=== PATIENT | female | born 1970 | race Caucasian/White ===

== ENCOUNTER 2022-02-13 10:57 | Outpatient (RCR) | payer OTHER, SELFPAY | END 2022-02-23 23:59 | disposition home or self-care (01) | LOC: CCIC 10:57 | PROVIDERS: PCP Family Medicine; Visit Provider Nurse Practitioner Family | DX: C43.9 Malignant melanoma of skin, unspecified (principal) | CPT/HCPCS: 99213; 99214 ==

== ENCOUNTER 2022-03-18 07:31 | Outpatient (RCR) | payer OTHER, SELFPAY | END 2022-03-20 13:40 | disposition home or self-care (01) | PROVIDERS: PCP Family Medicine; Visit Provider Surgery | DX: I89.0 Lymphedema, not elsewhere classified (principal); Z51.89 Encounter for other specified aftercare | CPT/HCPCS: 97530 ==

== ENCOUNTER 2022-05-08 13:11 | Outpatient (CLI) | payer OTHER, SELFPAY ==
--- NOTE | 2022-05-08 13:15 | CRLHL7_ITS ---
For Patients: As a result of the Century Cures Act, medical imaging exams and procedure reports are released immediately into your electronic medical record. You may view this report before your referring provider. If you have questions, please contact your health care provider. INDICATION: Melanoma TECHNIQUE: Following IV injection of FDG with uptake of 64 minutes, noncontrast CT scan followed by a PET scan were acquired along the length of body from the head vertex to the feet. Noncontrast CT was used for anatomic localization and photon attenuation correction of the PET-CT scan. - Blood glucose level: 82. - FDG dose (mCi): 12.65. COMPARISON: 04/25/2021. FINDINGS: Head/Neck: No abnormal radiotracer uptake - Chest: No abnormal radiotracer uptake - Background liver parenchyma with SUV mean of 2.12. No abnormal radiotracer uptake - Musculoskeletal: No abnormal radiotracer uptake - CT findings: Postsurgical changes of the right posterior thorax. Status post right axillary lymph node dissection. Sub centimeter left thyroid nodule which is not hypermetabolic. IUD in place. Minimal atherosclerotic disease of the abdominal aorta. IMPRESSION : No evidence of local recurrence or metastatic disease. Dictated by Duane Cerda MD @ 05/14/2022 5:58:52 PM (Electronically Signed)
== END 2022-05-08 13:12 | disposition home or self-care (01) ==
LOC: RAD 13:13
PROVIDERS: PCP Family Medicine; Visit Provider Nurse Practitioner Family
DX: C43.9 Malignant melanoma of skin, unspecified (principal)
CPT/HCPCS: 78816; A9552

== ENCOUNTER 2022-05-26 07:05 | Outpatient (CLI) | payer OTHER, SELFPAY ==
--- NOTE | 2022-05-26 07:15 | CRLHL7_ITS ---
For Patients: As a result of the Century Cures Act, medical imaging exams and procedure reports are released immediately into your electronic medical record. You may view this report before your referring provider. If you have questions, please contact your health care provider. Indication: MALIGNANT NEOPLASM OF SKIN, RE-EVALUATE LYMPH NODES Technique: Grayscale and color Doppler ultrasound of the right axilla performed. Comparison: 02/11/22 Findings: Stable lymph node within the right axilla with a prominent central fatty hilum and thin hypoechoic cortex measuring 6 x 3 x 8 millimeters. Stable lymph node also present in the right axilla with normal fatty hilum measuring 6 x 4 x 6 millimeters. Normal vascularity. No suspicious findings. Impression: Stable normal-appearing right axillary lymph nodes. Dictated by Duke Snowden MD @ 05/26/2022 8:54:54 AM (Electronically Signed)
== END 2022-05-26 07:06 | disposition home or self-care (01) ==
LOC: US 07:06
PROVIDERS: PCP Family Medicine; Visit Provider Clinical Nurse Specialist
DX: C43.9 Malignant melanoma of skin, unspecified (principal)
CPT/HCPCS: 76882

== ENCOUNTER 2022-07-06 14:53 | Emergency (ER) | payer OTHER, SELFPAY ==
[2022-07-06 14:59] VITALS: BP 134/76; PULSE 72; RESP 18; TEMP 36.8; O2SAT 99; BMI 21.9
--- NOTE | 2022-07-06 15:17 | CRLHL7_ITS ---
For Patients: As a result of the Century Cures Act, medical imaging exams and procedure reports are released immediately into your electronic medical record. You may view this report before your referring provider. If you have questions, please contact your health care provider. INDICATION: Injury. TECHNIQUE: Noncontrast CT images acquired through the brain. COMPARISON: None. FINDINGS: The ventricles and sulci are within normal limits for patient age. No mass effect or midline shift. The frazier-white differentiation is maintained. No acute intracranial hemorrhage or pathologic extra-axial fluid collection. Minimal atherosclerotic calcifications in the carotid siphons. The globes are symmetric. The calvarium is intact. Very small hyperattenuating left maxillary sinus air-fluid level. The mastoid air cells are clear. IMPRESSION: 1. No acute intracranial hemorrhage or mass effect. 2. Very small air-fluid level in the left maxillary sinus demonstrating hyperattenuation potentially secondary to inspissated secretions or blood products. Please note that all CT scans at this facility use dose modulation, iterative reconstruction, and/or weight-based dosing when appropriate to reduce radiation dose to as low as reasonably achievable. Dictated by Lc Trevino MD @ 07/06/2022 3:45:22 PM (Electronically Signed)
--- NOTE | 2022-07-06 15:17 | CRLHL7_ITS ---
For Patients: As a result of the Cures Act, medical imaging exams and procedure reports are released immediately into your electronic medical record. You may view this report before your referring provider. If you have questions, please contact your health care provider. INDICATION: INJURY TECHNIQUE: CT cervical spine without contrast. COMPARISON: None. FINDINGS: Vertebrae: Reversal of expected cervical lordosis. There are no fractures or suspicious bony lesions. Discs and facet joints: There are degenerative disc changes most severe at C5-6 and C6-7. There are multilevel degenerative changes in the facets. Extraspinal findings: Paraspinous soft tissues are unremarkable. Subcentimeter hypodense left thyroid nodule. IMPRESSION: No evidence of acute cervical spine fracture. Reversal of expected cervical lordosis which is nonspecific but may indicate muscle spasm. Mild-moderate multilevel degenerative spondylosis. Subcentimeter hypodense left thyroid nodule. Recommend nonemergent thyroid ultrasound to further evaluate if not views performed. Please note that all CT scans at this facility use dose modulation, iterative reconstruction, and/or weight-based dosing when appropriate to reduce radiation dose to as low as reasonably achievable. Dictated by Gómez Turner MD @ 07/06/2022 3:56:24 PM (Electronically Signed)
--- NOTE | 2022-07-06 15:17 | ED.HEATRA ---
HPI - Head Injury General Chief complaint: Head Injury/Pain Stated complaint: Sledding Accident Hit Head Time Seen by Provider: 07/06/22 15:05 History of Present Illness HPI Narrative: This 51-year-old female comes in with an injury that occurred just prior to arrival. She was sledding down a hill and hit a bump and flew into the air. She does not remember what happened and still feels foggy. She was able to ambulate in here under her own strength in without difficulty. She does have an abrasion on her nose and upper lip. She reports mild or moderate headache and some neck pain. She does not report any pain in her chest, abdomen, back, pelvis, or extremities. Prior to this she has been in good health. Related Data Home Medications Medication Instructions Recorded Confirmed ibuprofen 400 mg tablet 400 mg PO Q8H PRN 02/11/22 05/29/22 levonorgestrel 20 mcg/24 hours (8 1 device intrauterine ONCE 02/11/22 05/29/22 yrs) 52 mg intrauterine device (Mirena) melatonin 5 mg capsule 5 mg PO .HS PRN 02/11/22 05/29/22 Previous Rx's Medication Instructions Recorded cyclobenzaprine 10 mg tablet 10 mg PO TID #15 tabs 07/06/22 ketorolac 10 mg tablet 10 mg PO Q8H 5 days #15 tabs 07/06/22 Allergies Allergy/AdvReac Type Severity Reaction Status Date / Time No Known Drug Allergies Allergy Verified 05/29/22 14:55 Review of Systems Status of ROS: Reports: 10 or more systems reviewed and unremarkable except as noted in History and below Narrative: Constitutional: No fevers, no weight gain or loss. Eyes: No discharge. No vision changes. HENT: No congestion, no sore throat, no ear pain. Cardiovascular: No chest pain, no palpitations. Respiratory: No shortness of breath, no wheezes, no cough. Gastrointestinal: No abdominal pain, no vomiting, no diarrhea. Genitourinary: No dysuria, no hematuria. Musculoskeletal: Normal range of motion. Skin: No rashes, no pruritis. Neurological: No dizziness, weakness, sensory change, speech change. She does not remember what happened and still feels foggy. Endo/Heme/Allergies: No bruising or bleeding. No polydipsia. Pysch: no suicidality, no anxiety, no insomnia. All other systems reviewed and are negative. [facility] Medical History (Updated 07/06/22 @ 16:23 by Low Lopez MD) Insomnia Inverted nipple Malignant melanoma Surgical History (Updated 02/12/22 @ 23:38 by Carmen Whalen APRN) H/O wisdom tooth extraction History of colposcopy Social History Smoking Status: Never smoker Do you use any of these nicotine containing products: None How often do you have a drink containing alcohol: never AUDIT-C Alcohol total score: 0 Non-prescribed substance use: denies use Exam Narrative: Exam Narrative: Constitutional: Well-developed, well-nourished, no acute distress. HEENT: Normocephalic, atraumatic. Neck: Normal range of motion. Nontender when palpating along the midline. Supple. Heart: Regular. No murmurs. Normal rate. Intact distal pulses. Lungs: Clear to auscultation. No chest discomfort. No wheezes, rhonchi, or rales. Abdomen: Normal bowel sounds. Nontender. No rebound tenderness. Genitalia: Deferred. Back: No midline tenderness. Normal range of motion. Extremities: Normal range of motion. No injury. Skin: Intact. No rash. Warm. No erythema or pallor. Neurologic: No altered sensation. No weakness. Alert and oriented. Psychiatric: No suicidality. No anxiety or depression. No insomnia. Nursing notes and vitals signs are reviewed. Const: Vital Signs, click to edit/add: Vital Signs - 24 hr 07/06/22 14:59 Temperature 98.2 F Pulse Rate [Right Pulse Oximeter] 72 Respiratory Rate 18 Blood Pressure [13 4/76] 134/76 Pulse Oximetry 99 Oxygen Delivery Me thod Room Air Course Vital Signs Vital signs: Initial Vital Signs Temperature 98.2 F 07/06/22 14:59 Temperature Source Temporal Artery Scan 07/06/22 14:59 Pulse Rate 72 07/06/22 14:59 Respiratory Rate 18 07/06/22 14:59 Blood Pressure 134/76 07/06/22 14:59 Blood Pressure Mean 95 07/06/22 14:59 Blood Pressure Position Sitting 07/06/22 14:59 Pulse Oximetry 99 07/06/22 14:59 Oxygen Delivery Method 07/06/22 14:59 Vital Signs Temperature 98.2 F 07/06/22 14:59 Pulse Rate 72 07/06/22 14:59 Respiratory Rate 18 07/06/22 14:59 Blood Pressure 134/76 07/06/22 14:59 Pulse Oximetry 99 07/06/22 14:59 Oxygen Delivery Method 07/06/22 14:59 Temperature 98.2 F 07/06/22 14:59 Pulse Rate 72 07/06/22 14:59 Respiratory Rate 18 07/06/22 14:59 Blood Pressure 134/76 07/06/22 14:59 Pulse Oximetry 99 07/06/22 14:59 Oxygen Delivery Method 07/06/22 14:59 MDM - Head Injury MDM Narrative Medical decision making narrative: This patient comes in with head injury as described above. She also has some neck discomfort. She does not show any other sign of injury. She does not have any neurologic deficit or altered level of consciousness. She does feel a bit foggy in her thinking but her [place] coma Score is 15. A CT scan of the head and C-spine is ordered and completed. This returns with no acute findings. There is a small hypodense nodule in the left thyroid that was communicated to the patient. She is encouraged to follow-up at some point for ultrasound of this area. This patient has symptoms typical of a concussion. I described appropriate plans going forward in recovery of a concussion. She received prescriptions for Toradol and Flexeril. Imaging Data CT scan - head: Radiologist's impression: 1. No acute intracranial hemorrhage or mass effect. 2. Very small air-fluid level in the left maxillary sinus demonstrating hyperattenuation potentially secondary to inspissated secretions or blood products. CT C spine: Radiologist's impression: No evidence of acute cervical spine fracture. Reversal of expected cervical lordosis which is nonspecific but may indicate muscle spasm. Mild-moderate multilevel degenerative spondylosis. Subcentimeter hypodense left thyroid nodule. Recommend nonemergent thyroid ultrasound to further evaluate if not views performed. Discharge Plan Discharge Clinical Impression: Concussion with loss of consciousness Patient Disposition: Home, Self-Care Condition: Stable Additional Instructions: Increase activity as tolerated. Take medication as needed and directed. Follow up with MD or return if worsening. Prescriptions: New cyclobenzaprine 10 mg tablet 10 mg PO TID Qty: 15 0RF ketorolac 10 mg tablet 10 mg PO Q8H 5 Days Qty: 15 0RF No Action ibuprofen 400 mg tablet 400 mg PO Q8H PRN Mirena 20 mcg/24 hours (7 yrs) 52 mg intrauterine device 1 device intrauterine ONCE Rx Instructions: as a single dose melatonin 5 mg capsule 5 mg PO .HS PRN Follow Up/Referrals: Teodora Orourke MD [Primary Care Provider] - Stand Alone [facility]: [facility]
== END 2022-07-06 16:29 | disposition home or self-care (01) ==
PROVIDERS: Emergency Provider Emergency Medicine Emergency Medical Services; PCP Family Medicine
DX: S06.0X1A Concussion with loss of consciousness of 30 minutes or less, initial encounter (principal); W17.81XA Fall down embankment (hill), initial encounter; Y93.23 Activity, snow (alpine) (downhill) skiing, snowboarding, sledding, tobogganing and snow tubing
CPT/HCPCS: 70450; 72125; 99284

== ENCOUNTER 2022-07-10 10:14 | Outpatient (CLI) | payer OTHER, SELFPAY ==
--- NOTE | 2022-07-10 10:15 | CRLHL7_ITS ---
For Patients: As a result of the Century Cures Act, medical imaging exams and procedure reports are released immediately into your electronic medical record. You may view this report before your referring provider. If you have questions, please contact your health care provider. BILATERAL SCREENING MAMMOGRAM WITH COMPUTER-AIDED DETECTION AND TOMOSYNTHESIS TECHNIQUE: CC and MLO views were obtained. These mammographic images have been obtained using full-field digital technique. These mammographic images were interpreted with the benefit of computer-aided detection. Breast Tomosynthesis was used in this interpretation. COMPARISON FILM: 05/02/21, 03/20/20, 03/17/18. FINDINGS: The breasts are heterogeneously dense, which may obscure small masses IMPRESSION: There is no radiographic evidence for malignancy. ASSESSMENT: BI-RADS Category 1: Negative RECOMMENDATION: Routine screening mammogram in 1 year. A lay language report of this examination will be provided to the patient. Duke Snowden M.D. Diagnostic Radiologist [email or web address] Transcribed: 2:03 pm DW/Dictated by: Duke Snowden MD @ 07/10/2022 11:41:00 AM (Electronically Signed)
== END 2022-07-10 10:15 | disposition home or self-care (01) ==
LOC: MAMMO 10:14
PROVIDERS: PCP Family Medicine; Visit Provider Family Medicine
DX: Z12.31 Encounter for screening mammogram for malignant neoplasm of breast (principal); R92.2 Inconclusive mammogram
CPT/HCPCS: 77063; 77067

== ENCOUNTER 2022-08-28 08:30 | Outpatient (RCR) | payer OTHER, SELFPAY | END 2022-11-25 23:59 | disposition home or self-care (01) | LOC: CCIC 08:30 | PROVIDERS: PCP Family Medicine; Visit Provider Physician Assistant | DX: C43.9 Malignant melanoma of skin, unspecified (principal); E04.1 Nontoxic single thyroid nodule; C77.9 Secondary and unspecified malignant neoplasm of lymph node, unspecified | CPT/HCPCS: 99212; 99214 ==

== ENCOUNTER 2022-08-28 09:05 | Outpatient (CLI) | payer OTHER, SELFPAY ==
--- NOTE | 2022-08-28 09:15 | CRLHL7_ITS ---
For Patients: As a result of the Century Cures Act, medical imaging exams and procedure reports are released immediately into your electronic medical record. You may view this report before your referring provider. If you have questions, please contact your health care provider. INDICATION: Malignant melanoma, monitor for lymph node metastasis. TECHNIQUE: Ultrasound right axilla with grayscale imaging and color Doppler analysis. COMPARISON: Ultrasound right axilla 05/26/2022. FINDINGS: Sonographic evaluation of the right axilla demonstrates three small lymph nodes measuring 0.6 x 0.4 x 0.7 cm, 0.7 x 0.4 x 0.9 cm, and 0.7 x 0.4 x 0.7 cm. The two more inferior lymph nodes demonstrate prominent fatty ashley with thin hypoechoic cortices. The most superior lymph node is stable in morphology compared to prior exam with smaller fatty hilum. The superior and inferior lymph nodes were visualized previously and are stable in size. IMPRESSION: Three small normal morphology right axillary lymph nodes. Dictated by Rehana Mathis MD @ 08/28/2022 12:19:27 PM (Electronically Signed)
--- NOTE | 2022-08-28 09:15 | CRLHL7_ITS ---
For Patients: As a result of the Century Cures Act, medical imaging exams and procedure reports are released immediately into your electronic medical record. You may view this report before your referring provider. If you have questions, please contact your health care provider. INDICATION: Nodule seen on CT. COMPARISON: CT of the cervical spine 07/06/2022. TECHNIQUE: Andre scale and color Doppler images were acquired of the thyroid gland. FINDINGS: The thyroid gland demonstrates uniform echogenicity with smooth outer contour. The color Doppler images demonstrate normal vascularity. Right lobe: The right lobe measures 4.6 x 1.3 x 1.3 cm in size. No nodules. Left lobe: The left lobe measures 4.4 x 1.3 x 1.5 cm in size. There is a 0.8 x 0.5 x 0.9 cm mixed cystic and solid nodule in the mid left thyroid lobe. The solid component is hypoechoic. The nodule is wider than tall. TIRADS 3. Isthmus: The isthmus measures 0.3 cm in thickness. No nodules. IMPRESSION: 1. Subcentimeter TIRADS 3 nodule in the mid left thyroid lobe. This does not meet size criteria for FNA. ACR TI-RADS: [email or web address] TR1: Benign No FNA TR2: Not Suspicious No FNA TR3: Mildly Suspicious FNA if greater than or equal to 2.5 cm Follow if greater than or equal to 1.5 cm TR4: Moderately Suspicious FNA if greater than or equal to 1.5 cm Follow if greater than or equal to 1 cm TR5: Highly Suspicious FNA if greater than or equal to 1 cm Follow if greater than or equal to 0.5 cm Dictated by Rehana Mathis MD @ 08/28/2022 12:08:12 PM (Electronically Signed)
== END 2022-08-28 09:06 | disposition home or self-care (01) ==
LOC: US 09:07
PROVIDERS: PCP Family Medicine; Visit Provider Clinical Nurse Specialist
DX: C43.9 Malignant melanoma of skin, unspecified (principal); E04.1 Nontoxic single thyroid nodule; R59.0 Localized enlarged lymph nodes
CPT/HCPCS: 76536; 76882

== ENCOUNTER 2022-09-02 07:36 | Outpatient (CLI) | payer OTHER, SELFPAY ==
[2022-09-02 09:14] LABS: Albumin* 4.5 g/dL (3.3-5.0); Chloride* 107 mmol/L (96-114)
[2022-09-02 09:15] LABS: Potassium* 4.3 mmol/L (3.6-5.1); Sodium* 141 mmol/L (135-149)
[2022-09-02 09:17] LABS: Aspartate Amino Transferase* 21 U/L (12-35); Bilirubin Total* 0.6 mg/dL (0.1-1.5); Blood Urea Nitrogen* 18 mg/dL (7-30); Carbon Dioxide* 27 mmol/L (20-32); Cholesterol* 217 mg/dL (90-199); Creatinine* 0.8 mg/dL (0.5-1.5); Estimated Glomerular Filt Rate 89 ml/min; Glucose* 92 mg/dL (60-115); Total Protein* 7.4 g/dL (6.0-8.3)
[2022-09-02 09:18] LABS: Alanine Aminotransferase* 16 U/L (4-35); Alkaline Phosphatase* 51 U/L (40-150); Calcium* 9.5 mg/dL (8.4-10.6); HDL Cholesterol* 75 mg/dL (>=50); LDL Cholesterol Calculated 126 mg/dL (<100); Triglycerides* 79 mg/dL (40-149)
== END 2022-09-02 07:37 | disposition home or self-care (01) ==
PROVIDERS: PCP Family Medicine; Visit Provider Family Medicine
DX: Z13.6 Encounter for screening for cardiovascular disorders (principal)
CPT/HCPCS: 80053; 80061

== ENCOUNTER 2023-03-06 07:55 | Outpatient (CLI) | payer OTHER, SELFPAY ==
--- NOTE | 2023-03-06 08:15 | CRLHL7_ITS ---
For Patients: As a result of the Century Cures Act, medical imaging exams and procedure reports are released immediately into your electronic medical record. You may view this report before your referring provider. If you have questions, please contact your health care provider. Indication: Melanoma follow-up Technique: Grayscale and color Doppler ultrasound of right axilla performed. Comparison: 12/03/2022, 08/28/2022, 05/26/2022 Findings: Normal morphologic lymph nodes are present. Normal central fatty ashley and normal vascularity. One lymph node measures 2.3 x 0.5 x 0.6 cm with a cortex measuring 1.5 millimeters. A 2nd lymph node measures 8 x 5 x 6 millimeters with a cortex measuring 2 millimeters. Impression: Normal morphology of right axillary lymph nodes without cortical thickening. Dictated by Duke Snowden MD @ 03/06/2023 9:02:21 AM (Electronically Signed)
== END 2023-03-06 07:56 | disposition home or self-care (01) ==
LOC: US 07:56
PROVIDERS: PCP Family Medicine; Visit Provider Internal Medicine Hematology & Oncology
DX: C43.9 Malignant melanoma of skin, unspecified (principal)
CPT/HCPCS: 76882

== ENCOUNTER 2023-03-19 15:00 | Outpatient (RCR) | payer OTHER, SELFPAY | END 2023-06-02 23:59 | disposition home or self-care (01) | LOC: CCIC 15:00 | PROVIDERS: PCP Family Medicine; Visit Provider Physician Assistant | DX: C43.59 Malignant melanoma of other part of trunk (principal); C77.9 Secondary and unspecified malignant neoplasm of lymph node, unspecified; F07.81 Postconcussional syndrome | CPT/HCPCS: 99212; 99214; 99215 ==

== ENCOUNTER 2023-09-01 09:05 | Outpatient (CLI) | payer OTHER, SELFPAY ==
--- NOTE | 2023-09-01 09:15 | CRLHL7_ITS ---
For Patients: As a result of the Century Cures Act, medical imaging exams and procedure reports are released immediately into your electronic medical record. You may view this report before your referring provider. If you have questions, please contact your health care provider. INDICATION: History of melanoma, reassess right axillary nodes. TECHNIQUE: Right axillary ultrasound with grayscale and color Doppler images. COMPARISON: 03/06/2023, 12/03/2022, 08/28/2022 axillary ultrasounds. FINDINGS: Two normal-appearing lymph nodes noted. These have preserved fatty ashley and normal cortex. Lymph node 1 measures 8 x 3 mm and has cortical thickness of 1 mm. Lymph node 2 measures 5 x 3 mm and has cortical thickness of 1 mm. IMPRESSION: Two small normal-appearing lymph nodes in the right axilla. Dictated by Otis Aguilar MD @ 09/02/2023 11:18:52 AM (Electronically Signed)
== END 2023-09-01 09:06 | disposition home or self-care (01) ==
PROVIDERS: PCP Family Medicine; Visit Provider Physician Assistant
DX: C43.9 Malignant melanoma of skin, unspecified (principal); C77.9 Secondary and unspecified malignant neoplasm of lymph node, unspecified
CPT/HCPCS: 76882

== ENCOUNTER 2023-09-03 14:03 | Outpatient (RCR) | payer OTHER, SELFPAY | END 2024-03-01 23:59 | disposition home or self-care (01) | LOC: CCIC 14:03 | PROVIDERS: PCP Family Medicine; Visit Provider Physician Assistant | DX: C43.59 Malignant melanoma of other part of trunk (principal); C77.9 Secondary and unspecified malignant neoplasm of lymph node, unspecified; G47.00 Insomnia, unspecified; R51.9 Headache, unspecified; F07.81 Postconcussional syndrome | CPT/HCPCS: 99214; G0463 ==

== ENCOUNTER 2024-02-25 08:05 | Outpatient (CLI) | payer OTHER, SELFPAY ==
--- NOTE | 2024-02-25 08:15 | CRLHL7_ITS ---
For Patients: As a result of the Century Cures Act, medical imaging exams and procedure reports are released immediately into your electronic medical record. You may view this report before your referring provider. If you have questions, please contact your health care provider. Indication: Melanoma 6 month f/u rt axillary lymph nodes Technique: Grayscale and color Doppler ultrasound of the right axillary soft tissues performed. Comparison: 09/01/2023 Findings: Normal right axillary lymph nodes are present. Lymph nodes measure 1.4 x 0.5 x 0.8 cm and 0.8 x 0.4 x 0.6 cm. Normal fatty hilum within each lymph node and normal internal vascularity. The cortex is not thickened. Impression: Normal right axillary lymph nodes. No suspicious findings. Dictated by Duke Snowden MD @ 02/26/2024 6:31:53 AM (Electronically Signed)
== END 2024-02-25 08:06 | disposition home or self-care (01) ==
LOC: US 08:05
PROVIDERS: PCP Family Medicine; Visit Provider Physician Assistant
DX: C77.9 Secondary and unspecified malignant neoplasm of lymph node, unspecified (principal); C43.9 Malignant melanoma of skin, unspecified
CPT/HCPCS: 76882

== ENCOUNTER 2024-03-07 11:09 | Outpatient (RCR) | payer OTHER, SELFPAY | END 2024-09-03 23:59 | disposition home or self-care (01) | LOC: CCIC 11:09 | PROVIDERS: PCP Family Medicine; Visit Provider Physician Assistant | DX: C43.59 Malignant melanoma of other part of trunk (principal); C77.9 Secondary and unspecified malignant neoplasm of lymph node, unspecified | CPT/HCPCS: 99214; G0463 ==

== ENCOUNTER 2024-05-09 10:36 | Outpatient (CLI) | payer OTHER, SELFPAY ==
--- NOTE | 2024-05-09 10:45 | CRLHL7_ITS ---
For Patients: As a result of the Century Cures Act, medical imaging exams and procedure reports are released immediately into your electronic medical record. You may view this report before your referring provider. If you have questions, please contact your health care provider. BILATERAL SCREENING MAMMOGRAM WITH COMPUTER-AIDED DETECTION AND TOMOSYNTHESIS TECHNIQUE: CC and MLO views were obtained. These mammographic images have been obtained using full-field digital technique. These mammographic images were interpreted with the benefit of computer-aided detection. Breast Tomosynthesis was used in this interpretation. COMPARISON FILM: 07/10/22, 05/02/21, 03/20/20. FINDINGS: The breasts are heterogeneously dense, which may obscure small masses IMPRESSION: There is no radiographic evidence for malignancy. ASSESSMENT: BI-RADS Category 2: Benign RECOMMENDATION: Routine screening mammogram in 1 year. A lay language report of this examination will be provided to the patient. Duke Snowden M.D. Diagnostic Radiologist [email or web address] Transcribed: 1:56 [email or web address] by: Duke Snowden MD @ 05/16/2024 9:44:00 AM (Electronically Signed)
== END 2024-05-09 10:37 | disposition home or self-care (01) ==
PROVIDERS: PCP Family Medicine; Visit Provider Obstetrics & Gynecology
DX: Z12.31 Encounter for screening mammogram for malignant neoplasm of breast (principal); R92.333 Mammographic heterogeneous density, bilateral breasts
CPT/HCPCS: 77063; 77067

== ENCOUNTER 2024-09-05 07:13 | Outpatient (CLI) | payer OTHER, SELFPAY ==
--- NOTE | 2024-09-05 07:15 | CRLHL7_ITS ---
For Patients: As a result of the Century Cures Act, medical imaging exams and procedure reports are released immediately into your electronic medical record. You may view this report before your referring provider. If you have questions, please contact your health care provider. Indication: History of malignant melanoma, follow-up right axillary lymph nodes Technique: Grayscale and color Doppler ultrasound of the right axilla performed. Comparison: 09/01/2023 Findings: Right axillary lymph node is present measuring 5 x 3 x 5 millimeters with the cortex measuring 1.2 millimeters. Additional lymph node is present measuring 9 x 4 x 9 millimeters with the cortex measuring 1 millimeter. Normal internal vascularity. No suspicious findings. Previously, these lymph nodes measured 5 millimeters and 8 millimeters. Impression: Normal right axillary lymph nodes. Dictated by Duke Snowden MD @ 09/05/2024 8:23:08 AM (Electronically Signed)
== END 2024-09-05 07:14 | disposition home or self-care (01) ==
LOC: US 07:13
PROVIDERS: PCP Family Medicine; Visit Provider Physician Assistant
DX: C77.9 Secondary and unspecified malignant neoplasm of lymph node, unspecified (principal); C43.59 Malignant melanoma of other part of trunk; C43.9 Malignant melanoma of skin, unspecified
CPT/HCPCS: 76882

== ENCOUNTER 2024-09-19 08:35 | Outpatient (RCR) | payer OTHER, SELFPAY | END 2025-03-18 23:59 | disposition home or self-care (01) | LOC: CCIC 08:35 | PROVIDERS: PCP Family Medicine; Visit Provider Physician Assistant | DX: C43.59 Malignant melanoma of other part of trunk (principal); C77.9 Secondary and unspecified malignant neoplasm of lymph node, unspecified | CPT/HCPCS: 99213; G0463 ==

== ENCOUNTER 2025-03-10 08:10 | Outpatient (CLI) | payer OTHER, SELFPAY ==
--- NOTE | 2025-03-10 08:15 | CRLHL7_ITS ---
For Patients: As a result of the Century Cures Act, medical imaging exams and procedure reports are released immediately into your electronic medical record. You may view this report before your referring provider. If you have questions, please contact your health care provider. Indication: Stage 3 melanoma resected 2020 Technique: Grayscale and color Doppler ultrasound of the right axillary lymph nodes performed. Comparison: 09/05/2024 Findings: Normal right axillary lymph nodes are present measuring 6 x 3 x 4 millimeters and 8 x 4 x 8 millimeters. The cortex measures up to 1.5 millimeters. Normal central fatty ashley. Normal internal vascularity. Impression: No suspicious adenopathy. Dictated by Duke Snowden MD @ 03/10/2025 9:37:49 AM (Electronically Signed)
== END 2025-03-10 08:11 | disposition home or self-care (01) ==
LOC: US 08:11
PROVIDERS: PCP Family Medicine; Visit Provider Physician Assistant
DX: C43.59 Malignant melanoma of other part of trunk (principal); C43.9 Malignant melanoma of skin, unspecified; C77.9 Secondary and unspecified malignant neoplasm of lymph node, unspecified
CPT/HCPCS: 76882

== ENCOUNTER 2025-05-18 08:03 | Outpatient (CLI) | payer OTHER, SELFPAY ==
--- NOTE | 2025-05-18 08:15 | CRLHL7_ITS ---
For Patients: As a result of the Century Cures Act, medical imaging exams and procedure reports are released immediately into your electronic medical record. You may view this report before your referring provider. If you have questions, please contact your health care provider. INDICATION: BILATERAL SCREENING MAMMOGRAM, ASYMPTOMATIC 54 Y/O FEMALE COMPARISON: 05/09/2024, 07/10/2022, 05/02/2021 TECHNIQUE: Digital mammogram in CC and MLO projections including computer-aided detection (CAD) and tomosynthesis. BREAST COMPOSITION: The breasts are heterogeneously dense, which may obscure small masses. FINDINGS: No suspicious findings. ASSESSMENT: BI-RADS 1 Negative RECOMMENDATION: Annual screening mammogram. A lay language report of this examination will be provided to the patient. Dictated by: Duke Snowden MD @ 05/18/2025 11:42:07 (Electronically Signed)
== END 2025-05-18 08:04 | disposition home or self-care (01) ==
LOC: MAMMO 08:03
PROVIDERS: PCP Family Medicine; Visit Provider Family Medicine
DX: Z12.31 Encounter for screening mammogram for malignant neoplasm of breast (principal); R92.333 Mammographic heterogeneous density, bilateral breasts
CPT/HCPCS: 77063; 77067

== ENCOUNTER 2025-06-20 07:39 | Outpatient (CLI) | payer OTHER, SELFPAY | END 2025-06-20 07:40 | disposition home or self-care (01) | LOC: NFLDREF 06-24 18:21 | PROVIDERS: PCP Family Medicine; Referring Provider Family Medicine; Visit Provider Family Medicine | DX: E78.5 Hyperlipidemia, unspecified (principal) | CPT/HCPCS: 80053; 80061 ==

== ENCOUNTER 2025-06-27 07:56 | Outpatient (CLI) | payer OTHER, SELFPAY ==
[2025-06-29 07:10] LABS: HPV Source Cervical/Vag
[2025-07-03 15:33] LABS: Pap Test Digital Imaging Done
== END 2025-06-27 07:57 | disposition home or self-care (01) ==
PROVIDERS: PCP Family Medicine; Visit Provider Family Medicine
DX: Z12.4 Encounter for screening for malignant neoplasm of cervix (principal)
CPT/HCPCS: 87624; 87625; 88141; 88142; 88175